=== PATIENT | female | born 1995 | race American Indian/Alaskan Native ===

== ENCOUNTER 2020-11-20 05:45 | Inpatient (IN) | payer OTHER ==
[2020-11-20] MEDS ORDERED: ePHEDrine SULFATE 50 MG/1 ML INJ IV PRN (06:28)
[2020-11-20] MEDS ORDERED: LIDOCAINE (2%) 20 MG/1 ML VIAL 20 ML MDV INFILTRATI ONE (06:28)
[2020-11-20] MEDS ORDERED: miSOPROStol 200 MCG TAB PR PRN (06:28)
[2020-11-20] MEDS ORDERED: METHYLERGONOVINE MALEATE 0.2 MG/ML VIAL IM PRN (06:28)
[2020-11-20] MEDS ORDERED: BUTORPHANOL 2 MG/1 ML INJ IV PRN (06:28)
[2020-11-20] MEDS ORDERED: ACETAMINOPHEN 325 MG TAB PO PRN (06:28)
[2020-11-20] MEDS ORDERED: MINERAL OIL 30 ML ORAL LIQD PO PRN (06:28)
[2020-11-20] MEDS ORDERED: CARBOPROST TROMETHAMINE 250 MCG/1 ML INJ IM PRN (06:28)
[2020-11-20] MEDS ORDERED: OXYTOCIN 10 UNIT/1 ML INJ IM PRN (06:28)
[2020-11-20] MEDS ORDERED: TERBUTALINE 1 MG/1 ML INJ SUB-Q PRN (06:28)
[2020-11-20] MEDS ORDERED: LOPERAMIDE 2 MG CAP PO PRN (06:28)
[2020-11-20] MEDS ORDERED: fentaNYL 100 MCG/2 ML INJ IV PRN (06:28)
[2020-11-20] MEDS: LACTATED RINGERS 1,000 ML IV SCH ×3 (06:45→12:55)
[2020-11-20 07:09] LABS: Hematocrit 33.8 % (30.3-42.9); Hemoglobin 11.4 gm/dl (10.1-14.3); Mean Corpuscular HGB Conc 34 % (30-34); Mean Corpuscular Volume 86 fl (79-97); Platelet Count 311 K/mm3 (140-440); Red Blood Count 3.94 M/mm3 (3.65-5.03); Red Cell Distribution Width 14.9 % (13.2-15.2)
[2020-11-20] MEDS ORDERED: ONDANSETRON 4 MG/2 ML INJ IV PRN ×2 (09:00→17:55)
[2020-11-20] MEDS ORDERED: NALOXONE 2 MG/2 ML INJ IV PRN (09:00)
[2020-11-20] MEDS ORDERED: NalbUPHINE 10 MG/1 ML INJ IV PRN (09:00)
[2020-11-20] MEDS ORDERED: LACTATED RINGERS 250 ML IV SOLN IV ONE (09:00)
[2020-11-20] MEDS ORDERED: fentaNYL-BUPIV 2 MCG/ML-0.125% 200 MCG/100 ML BAG EPIDURAL SCH (09:00)
[2020-11-20] MEDS ORDERED: diphenhydrAMINE 50 MG/ML VIAL IV PRN (09:00)
--- NOTE | 2020-11-20 09:49 | Anesthesia Consultation ---
Anesthesia Consult and Med Hx Date of service: 11/20/20 - Airway Anesthetic Teeth Evaluation: Good ROM Head & Neck: Adequate Mental/Hyoid Distance: Adequate Mallampati Class: Class I Intubation Access Assessment: Good - Pulmonary Exam CTA: Yes - Cardiac Exam Cardiac Exam: RRR - Pre-Operative Health Status ASA Pre-Surgery Classification: ASA2 Proposed Anesthetic Plan: Epidural - Pulmonary Hx Smoking: No Hx Sleep Apnea: No - Cardiovascular System Hx Hypertension: No Hx Heart Attack/AMI: No Hx Angina: No - Gastrointestinal Hx Gastroesophageal Reflux Disease: No - Endocrine Hx Renal Disease: No Hx Liver Disease: No Hx Insulin Dependent Diabetes: No Hx Non-Insulin Dependent Diabetes: No - Other Systems Hx Alcohol Use: No
--- NOTE | 2020-11-20 09:50 | Progress Note ---
Labor Epidural - Labor Epidural Start Time: 09:25 Stop Time: 09:45 Performed by:: DIANA WHITLEY ([facility]) Procedure: Patient is requesting epidural for labor and pain. H&P, labs were reviewed. Patient IDed, H&P reviewed, all questions and concerns were answered, and consent was signed. Timeout was performed at bedside. Patient in sitting position. Sterile prep and drape was performed. 3ml of 1% lidocaine skin wheal at L[3]- L [4]. 18-gauge Tuohy epidural needle was advanced to loss of resistance with air technique 5cm. Negative CSF negative blood. Epidural catheter advanced to [10] centimeters. [negative] Aspiration [negative] test dose. Sterile dressing applied. Patient tolerated procedure.
[2020-11-20] MEDS: ePHEDrine SULFATE 50 MG/1 ML INJ IV PRN ×2 (11:20→12:51)
[2020-11-20] MEDS ORDERED: OXYTOCIN DRIP 30,000 MILLIUNITS/500 ML BAG IV ONE (11:29)
[2020-11-20] MEDS: OXYTOCIN DRIP 30 UNITS/500 ML BAG IV SCH ×2 (11:46→18:06)
--- NOTE | 2020-11-20 13:40 | History and Physical Report ---
History of Present Illness Date of examination: 11/20/20 Date of admission: 11/20/20 06:28 Chief complaint: c/o uc x several hours History of present illness: 24 y/o presented to [facility] @ 38.6 wks with c/o uc times several hours. She denied VB or LOF, and admitted to active . Pt initiated her pnc at [facility] location @ 14 3/7 wks. She was co managed by [facility] r/t a hx of a IUFD with IUGR and placenta abruption @ 35 wks in 2019. Pt has a hx of poor wt gain, uti with a neg NUBIA, and left renal pyelectasis, vit D def and she is a former smoker. Her GBS cul was neg. Pt was found to be in active labor and admitted to L&D for delivery. Past History Past Medical History: other (poor wt gain, previous IUFD with IUGR and placenta abruption @ 35 wks, uti with neg NUBIA, vit D def, former smoker, Left renal pyelectasis, ) Past Surgical History: no surgical history [employer] MECH[employer]IC History: trichomonas Family/Genetic History: hypertension Social history: single, full code - Obstetrical History Expected Date of Delivery: 11/28/20 Actual Gestation: 38 Week(s) 6 Day(s) : 2 Para: 1 Hx # Term Pregnancies: 0 Number of Pregnancies: 1 Spontaneous Abortions: 0 Induced : 0 Number of Living Children: 0 Medications and Allergies Allergies Allergy/AdvReac Type Severity Reaction Status Date / Time No Known Allergies Allergy Verified 11/20/20 06:33 Home Medications Medication Instructions Recorded Confirmed Last Taken Type No Known Home Medications [No 11/20/20 11/20/20 Unknown History Reported Home Medications] Active Meds: Active Medications Acetaminophen (Acetaminophen 325 Mg Tab) 650 mg PO Q4H PRN PRN Reason: Pain, Mild (1-3) Butorphanol Tartrate (Butorphanol 2 Mg/1 Ml Inj) 1 mg IV Q2H PRN PRN Reason: Pain, Moderate(4-6) LABOR PAIN Carboprost Tromethamine (Carboprost Tromethamine 250 Mcg/1 Ml Inj) 250 mcg IM ONCE PRN PRN Reason: Uterine Bleeding Diphenhydramine HCl (Diphenhydramine 50 Mg/Ml Vial) 12.5 mg IV Q2H PRN PRN Reason: Itching Ephedrine Sulfate (Ephedrine Sulfate 50 Mg/1 Ml Inj) 10 mg IV Q2M PRN PRN Reason: Hypotension Last Admin: 11/20/20 12:51 Dose: 10 mg Documented by: Fentanyl (Fentanyl 100 Mcg/2 Ml Inj) 100 mcg IV Q2H PRN PRN Reason: Pain,Severe (7-10) LABOR PAIN Last Admin: 11/20/20 07:38 Dose: 100 mcg Documented by: Lactated Ringer's (Lactated Ringers) 1,000 mls @ 125 mls/hr IV DIRECT DONITA Last Admin: 11/20/20 12:55 Dose: 125 mls/hr Documented by: Oxytocin/Sodium Chloride (Pitocin/Ns 30 Unit/500ml) 30 units in 500 mls @ 40 mls/hr IV TITR DONITA; Protocol Last Titration: 11/20/20 12:30 Dose: 0 mls/hr, 0 mls/hr Documented by: Fentanyl/Bupivacaine/Sodium Chlor (Fentanyl-Bupiv 2 Mcg/Ml-0.125%) 200 mcg in 100 mls @ 12 mls/hr EPIDURAL TITR DONITA; Protocol Last Admin: 11/20/20 10:08 Dose: 12 mls/hr Documented by: Oxytocin/Sodium Chloride (Pitocin/Ns 30 Unit/500ml) 30,000 milliunits in 500 mls @ 1 mls/hr IV DIRECT ONE; Protocol Stop: 12/11/20 07:28 Loperamide HCl (Loperamide 2 Mg Cap) 2 mg PO ONCE PRN PRN Reason: give with Hemabate Methylergonovine Maleate (Methylergonovine Maleate 0.2 Mg/Ml Vial) 0.2 mg IM ONCE PRN PRN Reason: Uterine Bleeding Mineral Oil (Mineral Oil 30 Ml Oral Liqd) 30 ml PO QHS PRN PRN Reason: Constipation Misoprostol (Misoprostol 200 Mcg Tab) 800 mcg SC ONCE PRN PRN Reason: Uterine Bleeding Nalbuphine HCl (Nalbuphine 10 Mg/1 Ml Inj) 2.5 mg IV Q2H PRN PRN Reason: Itching Naloxone HCl (Naloxone 2 Mg/2 Ml Inj) 0.2 mg IV Q5M PRN PRN Reason: Respiratory sedation Ondansetron HCl (Ondansetron 4 Mg/2 Ml Inj) 4 mg IV Q8H PRN PRN Reason: Nausea And Vomiting Oxytocin (Oxytocin 10 Unit/1 Ml Inj) 10 unit IM ONCE PRN PRN Reason: Uterine Bleeding Terbutaline Sulfate (Terbutaline 1 Mg/1 Ml Inj) 0.25 mg SUB-Q ONCE PRN PRN Reason: Hyperstimulation/Hypertonicity Review of Systems All systems: negative Eyes: deferred Ears, nose, mouth and throat: deferred - Vital Signs Vital signs: Vital Signs Pulse Pulse Ox 70 98 11/20/20 06:00 11/20/20 06:00 Temp Pulse Resp BP Pulse Ox 98.3 F 83 16 108/67 98 11/20/20 12:11 11/20/20 13:26 11/20/20 06:02 11/20/20 13:26 11/20/20 13:26 - Physical Exam Breasts: Positive: normal Abdomen: Positive: normal appearance, soft, normal bowel sounds Genitourinary (Female): Positive: normal external genitalia, normal perenium Vulva: both: normal Vagina: Positive: normal moisture Uterus: Positive: enlarged, normal contour Adnexa: both: normal Anus/Rectum: Positive: normal perianal skin Extremities: Positive: normal - Obstetrical FHR: auscultation normal, category 1 Uterine Contraction Monitor Mode: External Cervical Dilatation: 6 Cervical Effacement Percentage: 80 station: -2 Uterine Contraction Pattern: Regular Uterine Tone Measurement Phase: Resting Uterine Contraction Intensity: Strong/Firm Results Result Diagrams: 11/20/20 06:45 All other labs normal. Assessment and Plan A: IUP@ 38.6 wks Hx of IUGR IUFD with placental abruption @ 35 wks Poor wt gain Left renal pyelectasis Neg GBS p: Admit to L&D Continuous monitoring Notify NICU Pain med/Epidural prn AROM (CL FLUID) Anticpate - Patient Problems (1) Supervision of normal IUP (intrauterine ) in multigravida Current Visit: Yes Status: Acute
[2020-11-20] MEDS ORDERED: ALUM-MAG HYDROXIDE-SIMETHICONE 200-200-20MG/5ML ORAL LIQD 30 ML PO PRN (13:54)
[2020-11-20] MEDS ORDERED: ACETAMINOPHEN IV 1,000 MG/100 ML BOTTLE IV ONE (17:23)
[2020-11-20] MEDS ORDERED: AMPICILLIN/NS 2 GM/100 ML 2 GM/100 ML BAG IV ONE (17:29)
[2020-11-20] MEDS ORDERED: GENTAMICIN/NS 100 MG/100 ML 100 MG/100 ML BAG IV ONE (17:29)
[2020-11-20] MEDS ORDERED: ceFAZolin 1 GM VIAL ONE (17:34)
[2020-11-20] MEDS ORDERED: PROMETHAZINE 25 MG TAB PO PRN (17:55)
[2020-11-20] MEDS ORDERED: PROMETHAZINE 25 MG RECT SUPP PR PRN (17:55)
[2020-11-20] MEDS ORDERED: LANOLIN/ZINC/DIMETHICONE (LANSINOH) 7 GM TP PRN (17:55)
[2020-11-20] MEDS ORDERED: WITCH HAZEL/ GLYCERIN PAD TP PRN (17:55)
[2020-11-20] MEDS ORDERED: MAGNESIUM HYDROXIDE (MOM) ORAL LIQD UDC PO PRN (17:55)
[2020-11-20] MEDS ORDERED: diphenhydrAMINE 25 MG CAP PO PRN (17:55)
--- NOTE | 2020-11-20 18:05 | Procedure Note ---
OB Delivery Note - Delivery Date of Delivery: 11/20/20 Surgeon: DAJA BARKLEY ([facility]) Estimated blood loss: <100cc (<50) - Vaginal Delivery presentation: vertex (BRIGETTE) Delivery position: OA Intrapartum events: extend. tachycardia, mult. late decelerations, mult.variable deceleratio Delivery induction: none Delivery augmentation: rupture of membranes, pitocin Delivery monitor: external FHT, external uterine, internal FHT, internal uterine Route of delivery: Delivery placenta: spontaneous Delivery cord: 3 umbilical vessels Episiotomy: none Delivery laceration: none Anesthesia: epidural Delivery comments: Male birthed over intact perineum and placed to maternal abd after suprapubic pressure applied d/t poor maternal pushing effort. Cord clamped and cut. Placenta birthed spontaneously and intact. No lacerations. Fundus firm and bleeding hemostatic. QBL 50ml. Baby weight 7#15, APGARS 8/9 - Infant A at 1 minute: 8 (7#15) at 5 minutes: 9 Infant Gender: Male (7#15)
--- NOTE | 2020-11-20 18:12 | Event Note ---
Date: 11/20/20 Just prior to delivery while pt was pushing FHR was Tachycardic in the 200's with good variable. Maternal temp was 100.1 per nurse. Ampi 2Gms and Tylenol was ordered. Dr Grullon was notified and Gent 100mg was added to the regimen.
[2020-11-20] MEDS ORDERED: AMPICILLIN 2 GM in SODIUM CHLORIDE 0.9% 50 ML IV SCH (23:00)
[2020-11-20] MEDS: oxyCODONE /ACETAMINOPHEN 5-325MG TAB PO PRN (23:00)
[2020-11-20] MEDS: AMPICILLIN/NS 2 GM/100 ML 2 GM/100 ML BAG IV SCH (23:52)
[2020-11-21] MEDS: IBUPROFEN 600 MG TAB PO SCH ×2 (02:00→18:53)
[2020-11-21] MEDS: oxyCODONE /ACETAMINOPHEN 5-325MG TAB PO PRN (06:00)
[2020-11-21 06:09] LABS: Hemoglobin 10.7 gm/dl (10.1-14.3)
[2020-11-21] MEDS: AMPICILLIN/NS 2 GM/100 ML 2 GM/100 ML BAG IV SCH ×2 (06:19→12:10)
[2020-11-21] MEDS: FERROUS SULFATE 325 MG TAB PO SCH (09:10)
--- NOTE | 2020-11-21 12:06 | Post Anesthesia Evaluation ---
- Post Anesthesia Evaluation Patient Participated: Yes Airway Patent: Yes Stable Respiratory Function: Yes Nausea/Vomiting: No Temp > 96.8F: Yes Pain Manageable: Yes Adequeate Hydration: Yes Anesthesia Complications: No Block Receding Appropriately: Yes
--- NOTE | 2020-11-21 12:35 | Progress Note ---
Assessment and Plan A: day 1 S/P . Anemia. P: Iron supplementation. Countinue routine care. Subjective - Subjective Date of service: 11/21/20 Principal diagnosis: day 1 S/P Interval history: Was given ampicillin and gentamicin for endometritis. Patient reports: appetite normal, voiding normally, flatus, ambulating normally, no dizzy ambulation, no nauseated : doing well Objective - Vital Signs Latest vital signs: Vital Signs Temp Pulse Resp BP BP Pulse Ox Pulse Ox 11/21/20 10:00 98 11/21/20 08:37 97.9 F 79 18 101/65 98 11/21/20 08:24 98 11/21/20 07:00 18 11/21/20 06:00 18 11/21/20 05:46 98.4 F 66 18 103/65 98 11/21/20 03:00 18 11/21/20 02:00 18 11/21/20 01:54 98.6 F 83 18 94/53 96 11/21/20 00:00 18 11/20/20 23:00 18 11/20/20 21:30 98 11/20/20 21:25 98.0 F 68 18 110/63 110/63 98 11/20/20 20:54 114 H 71 L 11/20/20 20:53 78 63 L 11/20/20 20:49 69 83 L 11/20/20 20:47 54 L 58 L 11/20/20 20:42 108 H 76 L 11/20/20 20:41 100 H 114/83 11/20/20 20:38 71 88 11/20/20 20:36 90 97 11/20/20 20:31 76 97 11/20/20 20:26 89 119/65 97 11/20/20 20:21 78 97 11/20/20 20:16 73 97 11/20/20 20:12 67 117/58 11/20/20 20:11 71 136/71 98 11/20/20 20:06 94 H 98 11/20/20 20:01 76 97 11/20/20 19:56 82 137/72 97 11/20/20 19:51 82 98 11/20/20 19:46 77 98 11/20/20 19:41 80 141/77 97 11/20/20 19:36 85 97 11/20/20 19:31 79 97 11/20/20 19:26 82 134/69 97 11/20/20 19:21 85 98 11/20/20 19:16 90 97 11/20/20 19:11 85 134/72 98 11/20/20 19:06 88 97 11/20/20 19:01 89 98 11/20/20 18:56 109 H 137/73 98 11/20/20 18:51 83 98 11/20/20 18:46 90 96 11/20/20 18:41 94 H 147/79 97 11/20/20 18:36 83 99 11/20/20 18:31 90 98 11/20/20 18:26 82 157/83 98 11/20/20 18:21 109 H 97 11/20/20 18:16 110 H 99 11/20/20 18:13 99.9 F H 11/20/20 18:11 125 H 160/86 98 11/20/20 18:06 128 H 96 11/20/20 18:01 132 H 98 11/20/20 17:56 121 H 124/64 98 11/20/20 17:51 120 H 98 11/20/20 17:46 116 H 100 11/20/20 17:41 125 H 117/60 100 11/20/20 17:36 92 H 100 11/20/20 17:32 56 L 56 L 11/20/20 17:31 62 L 11/20/20 17:27 100 H 113/57 11/20/20 17:26 99 H 98 11/20/20 17:21 149 H 99 11/20/20 17:18 100.1 F H 11/20/20 17:16 101 H 99 11/20/20 17:13 102.4 F H 11/20/20 17:11 85 118/59 98 11/20/20 17:08 94 H 90 11/20/20 17:06 136 H 98 11/20/20 17:01 97 H 93 11/20/20 17:00 83 127/60 11/20/20 16:57 133 H 212/109 11/20/20 16:56 121 H 95 11/20/20 16:51 93 H 100 11/20/20 16:49 88 89 11/20/20 16:46 76 100 10/14/21 16:42 66 118/63 14/21 16:41 68 100 14/21 16:36 64 100 14/21 16:31 77 100 14/21 16:27 64 122/66 14/21 16:26 67 100 14/21 16:21 73 100 14/21 16:16 75 100 14/21 16:15 77 92 14 16:11 102 H 97 1421 16:08 91 H 93 14/21 16:06 75 98 14/21 16:01 70 98 14/21 15:56 65 113/67 98 14/21 15:51 68 97 14/21 15:46 94 H 98 14/21 15:44 73 90 14/21 15:41 64 99 14/21 15:36 71 99 14/ 15:31 72 100 14/21 15:29 97 H 92 11/20/20 15:26 75 96 11/20/ 15:23 76 93 14/21 15:21 64 98 11/20/20 15:16 68 97 11/20/20 15:13 80 108/60 11/20/ 15:12 98 H 91 11/20/20 15:11 97 H 95 11/20/20 15:06 79 100 11/20/20 15:01 67 99 11/20/20 14:56 71 107/54 99 14 14:51 82 97 14 14:46 111 H 98 14 14:41 108 H 98 14 14:36 78 98 1421 14:31 76 99 14 14:26 80 99 14/21 14:21 61 98 14 14:16 99 H 98 14 14:11 89 99 14 14:06 83 99 14 14:01 77 99 14/21 13:56 98 F 72 99 14/21 13:51 87 99 14/21 13:46 82 97 14/21 13:41 106 H 97/55 97 14/21 13:36 81 99 14/21 13:31 72 98 10/14/21 13:26 83 108/67 98 11/20/20 13:21 75 97 11/20/20 13:16 65 97 11/20/20 13:11 79 116/70 98 11/20/20 13:06 66 98 11/20/20 13:01 70 98 11/20/20 12:56 86 102/56 98 11/20/20 12:51 56 L 110/67 100 11/20/20 12:46 54 L 100 11/20/20 12:41 55 L 97/54 99 11/20/20 12:36 70 96 Intake and Output 11/20/20 11/21/20 11/21/20 23:59 07:59 15:59 Intake Total 9.067 700 Output Total 900 1600 Balance -890.933 -900 Intake: IV 9.067 100 AMPICILLIN/NS 2 GM/100 ML 100 2 gm In 100 ml @ 200 mls /hr IV Q6HR DONITA Rx#: [id number] PITOCin/NS 30 UNIT/500ML 9.067 30 units In 500 ml @ 40 mls/hr IV TITR DONITA Rx#: [id number] Intake, Free Water 600 Output: Urine 900 1600 Indwelling Catheter 900 Void 1600 Other: Total, Output Amount 900 800 # Voids Void 2 Estimated Blood Loss 50 - Exam Cardiovascular: Present: Regular rate Lungs: Present: Clear to auscultation Abdomen: Present: normal appearance, soft. Absent: distention, tenderness, guarding, rigidity Uterus: Present: normal, firm, other (FH at 1 FB below umbilicus). Absent: bogginess, tenderness Extremities: Absent: tenderness, edema
[2020-11-21] MEDS: HYDROcodone/ACETAMINOPHEN 5-325 MG TAB PO PRN ×2 (12:45→22:00)
[2020-11-21] MEDS ORDERED: GENTAMICIN 290 MG in SODIUM CHLORIDE 0.9% 100 ML IV SCH (18:00)
[2020-11-21] MEDS: AMOXICILLIN/K CLAV 500/125MG TAB PO SCH (22:04)
--- NOTE | 2020-11-22 06:55 | Progress Note ---
Assessment and Plan A: day 2 S/P . Anemia. P: Discharge patient home today. Discussed with patient discharge instructions and warning signs. Advised patient to continue taking her vitamins and iron supplements at home. Advised patient to avoid intercourse, lifting, and housework. Advised patient to follow up at [facility] office in 2 weeks. Patient voiced understanding of all instructions. Subjective - Subjective Date of service: 11/22/20 Principal diagnosis: day 2 S/P Interval history: Patient requests discharge home. Patient reports: appetite normal, voiding normally, pain well controlled, flatus, ambulating normally, no dizzy ambulation, no nauseated [place]: doing well, bottle feeding Objective - Vital Signs Latest vital signs: Vital Signs Temp Pulse Resp BP Pulse Ox Pulse Ox 11/21/20 23:56 98.5 F 60 20 107/60 97 11/21/20 23:00 18 11/21/20 22:00 18 11/21/20 18:33 98 11/21/20 17:10 97.9 F 75 18 109/70 98 11/21/20 16:26 98 11/21/20 14:00 98 11/21/20 12:18 98 11/21/20 10:00 98 11/21/20 08:37 97.9 F 79 18 101/65 98 11/21/20 08:24 98 11/21/20 07:00 18 Intake and Output 11/21/20 11/21/20 11/22/20 15:59 23:59 07:59 Intake Total 240 360 Balance 240 360 Intake: Oral 240 Intake, Free Water 360 Other: Total, Intake Amount 240 # Voids Void 1 1 - Exam Abdomen: Present: normal appearance, soft. Absent: distention, tenderness, guarding Uterus: Present: firm, fundal height below umbilicus. Absent: tenderness Extremities: Absent: tenderness
--- NOTE | 2020-11-22 06:58 | Discharge Summary ---
Providers - Providers Date of Admission: 11/20/20 06:28 Date of discharge: 11/22/20 Attending physician: YURIDIA TONY MD Primary care physician: YURIDIA TONY MD Hospitalization Reason for admission: active labor Delivery: Episiotomy: none Laceration: none Other procedures: none complications: none Discharge diagnosis: IUP at term delivered baby: male Pertinent studies: Labs Hospital course: Stable hospital course Condition at discharge: Good Disposition: 01 HOME / SELF CARE / HOMELESS - Discharge Diagnoses (1) Term delivered Status: Acute (2) Anemia Status: Acute Plan - Provider Discharge Summary Activity: routine, no sex for 6 weeks, no heavy lifting 4 weeks, no strenuous exercise Diet: routine Instructions: routine Additional instructions: Continue taking your vitamins and iron supplements at home. Follow up at [facility] in 2 weeks. Call your doctor immediately for: * Fever > 100.5 * Heavy vaginal bleeding ( >1 pad per hour) * Severe persistent headache * Shortness of breath * Reddened, hot, painful area to leg or breast - Follow up plan Follow up: YURIDIA TONY MD [Primary Care Provider] - 14 Days
[2020-11-22] MEDS: HYDROcodone/ACETAMINOPHEN 5-325 MG TAB PO PRN (09:44)
[2020-11-22] MEDS: AMOXICILLIN/K CLAV 500/125MG TAB PO SCH (09:45)
[2020-11-22] MEDS: FERROUS SULFATE 325 MG TAB PO SCH (09:45)
--- NOTE | 2020-11-22 10:37 | Progress Note ---
Subjective Date of service: 11/22/20 Principal diagnosis: day 2 S/P Interval history: Called to evaluate patient for back pain. Pain is localized at epidural site, no redness, drainage, fevers. All extremeties full sensation and strength. Patient has been ambulating and urinating with no difficulty. Epidural catheter documented as intact on removal. No indication for imaging at this point. States pain is 9/[address] since the epidural was been removed. On review of MAR, noted that patient has only received 1 dose of NSAID and 3 doses of norco with pain scores of 6 documented. Encouraged patient to continue ambulating, take NSAID scheduled, and apply ice as needed. Instructed to return to ER for signs of infection, lower extremety weakness/numbness and/or pain does not improve. Objective - Constitutional Vitals: Vital Signs - 12hr 11/21/20 11/21/20 11/22/20 23:00 23:56 07:26 Temperature 98.5 F 98.7 F Pulse Rate 60 66 Respiratory 18 20 22 Rate Blood Pressure 107/60 111/76 O2 Sat by Pulse 97 98 Oximetry - Labs CBC & Chem 7: 11/21/20 05:56 11/21/20 19:24
[2020-11-22] MEDS: IBUPROFEN 600 MG TAB PO SCH (14:35)
[2020-11-22 14:39] VITALS: BP 120/76
== END 2020-11-22 14:10 | disposition home or self-care (01) | DRG 775 ==
LOC: TRG 05:45 → APU 05:47 → TRG 06:28 → OBSVTOIN 06:28 → OB 07:07 → LD 07:14 → OB 21:17
PROVIDERS: ADMIT Obstetrics & Gynecology; ATTEND Obstetrics & Gynecology
PROC: 10E0XZZ Delivery of Products of Conception, External Approach (ICD-10-PCS; principal; 2020-11-20)
PROC: 3E0R3BZ Introduction of Anesthetic Agent into Spinal Canal, Percutaneous Approach (ICD-10-PCS; 2020-11-20)
PROC: 00HU33Z Insertion of Infusion Device into Spinal Canal, Percutaneous Approach (ICD-10-PCS; 2020-11-20)
DX: O76 Abnormality in fetal heart rate and rhythm complicating labor and delivery (principal); Z20.822 Contact with and (suspected) exposure to COVID-19; Z3A.39 39 weeks gestation of pregnancy; Z37.0 Single live birth; Z82.49 Family history of ischemic heart disease and other diseases of the circulatory system; O90.81 Anemia of the puerperium
CPT/HCPCS: 36415; 59025; 82565; 85014; 85018; 85027; 86592; 86850; 86900; 86901; G0378; J0131; J0290; J1580; J2405; J2590; J3010; J7120; U0003